=== PATIENT | male | born 1940 | race Caucasian/White ===

== ENCOUNTER 2023-01-17 09:45 | Outpatient (RCR) | payer MEDICARE, SELFPAY | END 2023-01-17 23:59 | disposition home or self-care (01) | LOC: RPT 09:45 | PROVIDERS: ATTENDING PHYSICIAN Urology; FAMILY PHYSICIAN Family Medicine | DX: N39.3 Stress incontinence (female) (male) (principal); N32.81 Overactive bladder; N39.41 Urge incontinence; M62.89 Other specified disorders of muscle | CPT/HCPCS: 97110; 97530 ==

== ENCOUNTER 2023-09-15 08:45 | Day surgery (SDC) | payer MEDICARE, SELFPAY ==
[2023-09-12 13:52] LABS: % Basophils 0.7 % (0-2); % Eosinophils 2.8 % (0-6); % Immature Granulocytes 0.2 % (0-0.5); % Lymphocytes 28.1 % (20.5-51.1); % Monocytes 10.7 % (1.7-9.3); % Neutrophils 57.5 % (42.2-75.2); Absolute Eosinophils 0.2 10^3/uL (0-0.7); Absolute Lymphocytes 1.5 10^3/uL (1.2-3.4); Absolute Monocytes 0.6 10^3/uL (0.1-0.6); Absolute Neutrophils 3.1 10^3/uL (1.4-6.5); Hematocrit 41.2 % (39.0-52.0); Hemoglobin 13.9 g/dL (13.0-18.0); Mean Corp Hgb Conc. 33.7 g/dL (33.0-37.0); Mean Corpuscular Hgb 30.8 pg (27.0-31.0); Mean Corpuscular Volume 91.2 fL (80.0-94.0); Mean Platelet Volume 9.6 fL (7.4-10.4); Nucleated Red Blood Cells % 0 % (-); Platelet Count 188 10^3/uL (130-400); Red Blood Cell Count 4.52 10^6/uL (4.70-6.10); Red Cell Dist. Width 14.1 % (11.5-14.5); White Blood Cell Count 5.3 10^3/uL (4.8-10.8)
[2023-09-12 14:02] LABS: Urine Albumin Negative (Neg - Trace); Urine Bilirubin Negative (Negative); Urine Character Clear (Clear); Urine Color Yellow; Urine Glucose Negative (Negative); Urine Ketone Negative (Negative); Urine Leukocyte Negative (Negative); Urine Nitrite Negative (Negative); Urine Occult Blood Negative (Negative); Urine Urobilinogen Negative (Neg - 1+)
[2023-09-12 14:19] LABS: Blood Urea Nitrogen 13 mg/dl (9-20); Calcium 9.4 mg/dl (8.4-10.2); Carbon Dioxide 28 mmol/L (22-30); Chloride 105 mmol/L (98-107); Estimated Creatinine Clearance 77 ml/min; Glucose 65 mg/dl (70-99); Potassium 4.3 mmol/L (3.5-5.1); Sodium 139 mmol/L (135-145); eGFR > 60.00
[2023-09-15] VITALS (7 sets, daily range): BP systolic 81–140; BP diastolic 56–89; BMI 25.8
[2023-09-15 06:37] LABS: Glucose - Point of Care 102 mg/dl (70-99)
[2023-09-15] MEDS: Pyridium 200 MG PO (08:10)
[2023-09-15 08:12] LABS: Glucose - Point of Care 99 mg/dl (70-99)
== END 2023-09-15 08:47 | disposition home or self-care (01) ==
LOC: SDS 08:45
PROVIDERS: ATTENDING PHYSICIAN Urology; FAMILY PHYSICIAN Family Medicine
DX: N39.41 Urge incontinence (principal)
CPT/HCPCS: 52287; 36415; 80048; 81003; 82962; 85025; 93005; J0585

== ENCOUNTER → 2023-10-23 12:31 | Outpatient (REF) | payer MEDICARE, SELFPAY | LOC: RAD 12:31 | PROVIDERS: ATTENDING PHYSICIAN Family Medicine | DX: Z72.0 Tobacco use (principal) | CPT/HCPCS: 71250 ==

== ENCOUNTER → 2024-03-29 11:04 | Outpatient (REF) | payer MEDICARE, SELFPAY | LOC: MRI 3T 11:04 | PROVIDERS: ATTENDING PHYSICIAN Pain Medicine Pain Medicine; FAMILY PHYSICIAN Family Medicine | DX: M47.817 Spondylosis without myelopathy or radiculopathy, lumbosacral region (principal) | CPT/HCPCS: 72148 ==

== ENCOUNTER 2024-08-27 17:37 | Emergency (ER) | payer MEDICARE, SELFPAY ==
[2024-08-27] VITALS (14 sets, daily range): BP systolic 139–161; BP diastolic 82–99; BMI 25.6
--- NOTE | 2024-08-27 17:51 | ED.CVA ---
History of Present Illness
<MING Hill - Last Filed: 08/28/24 00:01>
General
Chief Complaint: CVA/TIA Symptoms
Source: family and ambulance crew
Exam Limitations: altered mental status
Time Seen by Provider: 08/27/24 17:48
Nursing documentation reviewed up to this point in time: agreed with
Onset of Stroke Symptoms
Onset of symptoms known: No
Time pt last seen normal is known: Yes
Date last time pt seen normal: 08/27/24
History of Present Illness
History of Present Illness:
84 yr old male with past medical history of TIA, COPD on aspirin only no other blood thinners presented to the ER for evaluation. I was called to see this patient as a stroke alert. Stroke alert was called prior to my exam. This is an 84year-old
male who as per EMS was last seen normal at 4:45 PM was walking out in the driveway tp get the mail. reports he never came back and bystanders apparently saw patient on the ground and called EMS. EMS reports the patient had obvious
right-sided flaccid paralysis and was confused. EMS does report that since his initial evaluation the right-sided weakness seems to be improving. He was not able to move his right leg at all but now is. Patient is awake alert confused but does
follow commands.
Past History
<MING Hill - Last Filed: 08/28/24 00:01>
Past History
ED Past Medical History: Cancer (Prostate CA), COPD, HTN, Hypercholesterolemia, NIDDM and Other (renal calc, Sleep apnea, Glaucoma)
ED Past Surgical History: Appendectomy, Urological (prostatectomy, Vasectomy) and Other (cysto stent. bilateral cataracts )
Social History
Tobacco: Former smoker
Alcohol: Daily (Vodka, 3 glasses)
Personal:
Living: with family
Employment: Employed
Family History
Family History: Other
Phy Exam
<MING Hill - Last Filed: 08/28/24 00:01>
General Physical Exam
General Presentation: no apparent distress
General age: appears stated age
General Skin: warm and dry
General Habitus: elderly
General Mental: confused
General Hydration: appears well hydrated
Cardiovascular Exam
Cardiovascular Exam: regular rate/rhythm, no murmur and normal peripheral pulses
Pulmonary Exam
Pulmonary Exam: lungs clear and no respiratory distress
Neurological Exam
Neurological Exam: alert and other (Awake alert but confused attempts to follow commands; right arm and right leg still with weakness + right arm drift no facial droop )
Musculoskeletal Exam
Musculoskeletal Exam: other (abrasion to right arm)
Skin Exam
Skin Exam: normal color and warm/dry
Course
<MING Hill - Last Filed: 08/28/24 00:01>
Orders/Labs/Results
Orders:
Orders
08/27/24 17:43
Electrocardiogram (*1) Urgent
Reason for Study: TIA/Stroke
08/27/24 17:44
EKG- Treatment ONCE
08/27/24 17:49
CT HEAD STROKE ALERT W/o Cont Urgent
Comment:
Reason For Exam: r sided weakness
Complete Blood Count/With Diff Urgent
Comprehensive Metabolic Panel Urgent
08/27/24 18:20
CT Cervical Spine W/o Iv Contr Urgent
Comment:
Reason For Exam: fall
08/27/24 18:48
CT Head & Neck Angio W/wo IV Urgent
Comment:
Reason For Exam: bleed, L sided weakness
08/27/24 18:52
Tetanus/Diphth/Acelpertussis [Adacel] 0.5 ml IM .ONCE ONE
08/27/24 19:01
Nicardipine 40 mg/200 ml [Cardene] 40 mg in 200 ml IV NOW
Initial dose in mg/hr, then titrate:: 5
Titrate to keep:: SBP 120 - 140 mmHg
Titrate by mg/hr:: 2.5 mg/hr
Frequency of titrations (minutes):: 5-15 minutes
Maximum dose in mg/hr:: 15
Begin to taper infusion when:: Remained at goal for 2hrs
Taper by mg/hr:: 2.5 mg/hr
Frequency of taper (minutes) if patient maintains goal:: 15-30 minutes
Taper to off?: Yes
If infusion off & no longer maintaining goal:: Contact Provider
Abnormal Lab Results
08/27/24
17:49
WBC 4.6 L 10^3/uL
(4.8-10.8)
Monocytes % 13.6 H %
(1.7-9.3)
Chloride 109 H mmol/L
(98-107)
Glucose 120 H mg/dl
(70-99)
08/27/24 17:49
08/27/24 17:49
Vital Signs
Initial and Last Documented VS:
Initial Vital Signs
Temp Pulse Resp BP Pulse Ox
98.3 F 93 18 156/89 97
08/27/24 17:50 08/27/24 17:50 08/27/24 17:50 08/27/24 17:50 08/27/24 17:50
Last Documented Vital Signs
Temp Pulse Resp BP Pulse Ox
98.3 F 109 17 149/87 94
08/27/24 17:50 08/27/24 20:34 08/27/24 20:34 08/27/24 20:34 08/27/24 20:34
Formula Bottler consulted with Physician
Formula Bottler consulted with physician?: Yes (robel )
<Julisa Wise MD - Last Filed: 08/27/24 19:47>
Orders/Labs/Results
Orders:
Orders
08/27/24 17:43
Electrocardiogram (*1) Urgent
Reason for Study: TIA/Stroke
08/27/24 17:44
EKG- Treatment ONCE
08/27/24 17:49
CT HEAD STROKE ALERT W/o Cont Urgent
Comment:
Reason For Exam: r sided weakness
Complete Blood Count/With Diff Urgent
Comprehensive Metabolic Panel Urgent
08/27/24 18:20
CT Cervical Spine W/o Iv Contr Urgent
Comment:
Reason For Exam: fall
08/27/24 18:48
CT Head & Neck Angio W/wo IV Urgent
Comment:
Reason For Exam: bleed, L sided weakness
08/27/24 18:52
Tetanus/Diphth/Acelpertussis [Adacel] 0.5 ml IM .ONCE ONE
08/27/24 19:01
Nicardipine 40 mg/200 ml [Cardene] 40 mg in 200 ml IV NOW
Initial dose in mg/hr, then titrate:: 5
Titrate to keep:: SBP 120 - 140 mmHg
Titrate by mg/hr:: 2.5 mg/hr
Frequency of titrations (minutes):: 5-15 minutes
Maximum dose in mg/hr:: 15
Begin to taper infusion when:: Remained at goal for 2hrs
Taper by mg/hr:: 2.5 mg/hr
Frequency of taper (minutes) if patient maintains goal:: 15-30 minutes
Taper to off?: Yes
If infusion off & no longer maintaining goal:: Contact Provider
Abnormal Lab Results
08/27/24
17:49
WBC 4.6 L 10^3/uL
(4.8-10.8)
Monocytes % 13.6 H %
(1.7-9.3)
Chloride 109 H mmol/L
(98-107)
Glucose 120 H mg/dl
(70-99)
08/27/24 17:49
08/27/24 17:49
Vital Signs
Initial and Last Documented VS:
Initial Vital Signs
Temp Pulse Resp BP Pulse Ox
98.3 F 93 18 156/89 97
08/27/24 17:50 08/27/24 17:50 08/27/24 17:50 08/27/24 17:50 08/27/24 17:50
Last Documented Vital Signs
Temp Pulse Resp BP Pulse Ox
98.3 F 109 17 149/87 94
08/27/24 17:50 08/27/24 20:34 08/27/24 20:34 08/27/24 20:34 08/27/24 20:34
<MING Hill - Last Filed: 08/28/24 00:01>
MDM/Problems Addressed
Differential Diagnosis Includes:
Not limited to CVA, intracranial hemorrhage
MDM/Problems Addressed:
84 yr old male brought by EMS. 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 EMS was called by bystanders and when ALS arrived patient had garbled speech and right-sided paralysis. Patient presents
awake alert confused however is able to now lift his right leg has some right-sided weakness but remains confused. Stroke alert was called prior to my exam CAT scan was done which shows intraparenchymal hemorrhage in the left parietal lobe
approximately 5.8 cm also with intraventricular hemorrhage in the left lateral ventricle. Dr. Wise made aware evaluated patient bedside. Patient is on aspirin only no other blood thinners. Normal platelets.
Call placed to [facility] .
I spoke to [facility] stroke fellow , pt is accepted to Neuro ICU at [facility] . as per stroke fellow request to keep systolic bp 130-150 and start at Nicardipine drip now and for transfer.
Pt is to go to [place] [id number]
Attempted ground rotation however 1.5 hours.
1944: Patient seem to be getting more confused questionable slight increase in size of left pupil. pt re-eval by myself and ED attending and therefore decision was made to fly patient to [facility]
Chronic conditions affecting care:
TIA /htn on ASA
<MING Hill - Last Filed: 08/28/24 00:01>
*Radiology
Radiology exam reviewed: radiology read reviewed
*Pulse Oximetry
SaO2: 97
Oxygen Mode of Delivery: Room air
Patient hypoxic: no
*Critical Care Note
Total Time (30-74mins, 75-104mins- exclusive of procedures): Not Applicable
comment:
Critical care statement: A total of 40 minutes of critical care time was provided for this patient. This includes management of unstable vital signs, evaluation of the patient at bedside, reviewing the patient's pertinent medical records, discussion
with consultants, review of old EKGs and review of pertinent medical records. This time with separate from time utilized to perform the aforementioned documented procedures
<MING Hill - Last Filed: 08/28/24 00:01>
Patient Management
Discussion with other providers: Other ([facility] neurovascular )
ED Attending Note
<MING Hill - Last Filed: 08/28/24 00:01>
-
Portions of this chart may have been created with voice recognition software.� Occasional wrong word or��sound alike� substitutions may have occurred due to the inherent limitations of voice recognition software.
<Julisa Wise MD - Last Filed: 08/27/24 19:47>
ED Attending Note
Patient seen and examined by attending physician: Yes
I performed the substantive portion of visit, reviewed & personally made and approve the management plan that is documented in note by myself or ROLAND.: Yes
ED Attending Note:
84-year-old male who was perfectly well at 445. noticed that he was not around and approximately 10 minutes later she went outside to the mailbox area and noted that he was on the ground. Bystanders had already called 911. He was awake and
alert but seemed confused and trouble speaking. Right-sided paralysis noted. EMS feels that this weakness is improving. On exam, patient is awake alert and states clearly 'I am confused'. He does not have facial droop. He has trouble following
some commands and is frustrated by that. He is noted to have right upper extremity weakness, motor strength intact otherwise, sensory intact to light touch. Difficult to assess cerebellar function given patient occultly following commands. Visual
jalloh appear intact. CAT scan consistent with intraparenchymal and intraventricular bleed. Given patient was found on the ground unclear if there was preceding trauma to this bleed. Medical SCENARIO WRITER currently speaking with [facility] regarding arrangements
for transfer. Blood pressure well-controlled. Patient is on a daily aspirin otherwise no anticoagulant antiplatelet agents, last dose was reportedly last night. Platelet count is normal. Cervical collar applied pending cervical CT.
745pm Arrangedments made with [facility], accepted for tx, nicardipie started. Awaiting bed placement. In interim, L pupil noted to be sl larger than prior, c/o delgado. Awake alert no new neuro sxs otherwise. Calling [facility] now to further expediete tx state.
Discharge Plan
Departure
Patient Disposition: Acute [facility]
Date of Disposition: 08/27/24
Time of Disposition: 18:52
Patient with high blood pressure during this ER visit?: Yes
Condition: Serious
Covid-19: Not Applicable
Discharge Problem:
INTRAPARENCHYMAL HEMORRHAGE
Prescriptions:
No Action
aspirin 81 MG tablet,delayed release (DR/EC)
81 mg PO HS
Glucosamine Chondroitin 550-30-1 mg Capsule
1 cap PO DAILY
multivitamin Tablet
1 tab PO DAILY
alprazolam 0.5 MG tablet
0.75 mg PO HS
pantoprazole 40 MG tablet,delayed release (DR/EC)
40 mg PO HS
ramipril 10 MG capsule
10 mg PO HS
rosuvastatin 10 MG tablet
10 mg PO DAILY
omega-3 fatty acids 1,250 mg Capsule
2,500 mg PO DAILY
mirabegron [Myrbetriq] 50 MG tablet extended release 24 hr
50 mg PO DAILY
Somnapure
1 tab PO HS
metformin 500 mg tablet
1,000 mg PO DAILY
donepezil [Aricept] 10 mg Tablet
10 mg PO DAILY
mirtazapine [Remeron] 15 mg Tablet
37.5 mg PO HS
memantine 5 mg Tablet
5 mg PO HS
Referrals:
Mathtew De La O MD [Family Provider, [facility]]
Hospital Transfer
Other hospital: [facility] neuro ICU
I certify that the patient requires transfer: Yes
Discussed case with accepting physician: Dr Jennings
Reason for transfer: higher level of care
Interventions
Interventions:
*Risk Screen - Suicide Last Done: 08/27/24 18:28
*General Assessment Last Done: 08/27/24 18:00
*Neglect/Abuse Screening Last Done: 08/27/24 18:28
*Nursing Disposition Last Done: 08/27/24 20:52
ED- Pulmonary Assessment Last Done: 08/27/24 18:28
ED- Neurological Assessment Last Done: 08/27/24 18:21
ED- Cardiac Assessment Last Done: 08/27/24 18:27
Discharge Date and Time
Discharge Date/Time: 08/27/24 20:55
Print Language: [facility]
[2024-08-27 17:56] LABS: Hematocrit 44.0 % (39.0-52.0); Hemoglobin 14.9 g/dL (13.0-18.0); Mean Corp Hgb Conc. 33.9 g/dL (33.0-37.0); Mean Corpuscular Volume 91.3 fL (80.0-94.0); Nucleated Red Blood Cells % 0 % (-); Platelet Count 179 10^3/uL (130-400); Red Cell Dist. Width 13.8 % (11.5-14.5)
[2024-08-27 18:10] LABS: ALT (SGPT) 26 U/L (0-50); AST (SGOT) 23 U/L (17-59); Albumin 4.1 g/dl (3.5-5.0); Alkaline Phosphatase 42 U/L (38-126); Blood Urea Nitrogen 18 mg/dl (9-20); Calcium 9.3 mg/dl (8.4-10.2); Carbon Dioxide 24 mmol/L (22-30); Chloride 109 mmol/L (98-107); Estimated Creatinine Clearance 69 ml/min; Glucose 120 mg/dl (70-99); Potassium 4.6 mmol/L (3.5-5.1); Sodium 138 mmol/L (135-145); Total Protein 6.4 g/dl (6.3-8.2); eGFR > 60.00
[2024-08-27] MEDS: CARDENE 200 IV (19:20)
[2024-08-27] MEDS: ADACEL 0.5 ML IM (20:20)
== END 2024-08-27 20:55 | disposition short-term general hospital (02) ==
LOC: EMR 17:37
PROVIDERS: EMERGENCY PHYSICIAN Emergency Medicine; FAMILY PHYSICIAN Family Medicine
DX: I61.5 Nontraumatic intracerebral hemorrhage, intraventricular (principal); S40.811A Abrasion of right upper arm, initial encounter; W19.XXXA Unspecified fall, initial encounter; E11.9 Type 2 diabetes mellitus without complications; E78.00 Pure hypercholesterolemia, unspecified; I10 Essential (primary) hypertension; J44.9 Chronic obstructive pulmonary disease, unspecified; Z79.82 Long term (current) use of aspirin; Z86.73 Personal history of transient ischemic attack (TIA), and cerebral infarction without residual deficits; Z87.891 Personal history of nicotine dependence; Z90.49 Acquired absence of other specified parts of digestive tract; Z90.79 Acquired absence of other genital organ(s); Z23 Encounter for immunization
CPT/HCPCS: 99291; 90471; 96365; 70450; 70496; 70498; 72125; 80053; 85025; 90715; 93005; 96374; Q9967